=== PATIENT | male | born 1945 | race Caucasian/White ===

== ENCOUNTER 2020-03-25 18:31 | Inpatient (IN) | payer MEDICARE ==
[~2020-03-25] VITALS: Ht 190.5 cm; Wt 164.4 kg
[~2020-03-25 18:31] MED LIST: ASPI-482 PO; GEMF600T8 PO; HYDR12.575 PO; INSU100I17 SQ; LISI-334 PO; METF10007 PO; METO-269 PO; SIMV40TA18 PO
[2020-03-25 19:02] LABS: BASO % 0 % (0-3); EOS # 0.1 x10^3/uL (0.0-0.7); EOS % 1 % (0-3); HEMATOCRIT 35.3 % (39.0-53.0); HEMOGLOBIN 12.1 g/dL (13.0-17.5); LYMPH # 2.2 x10^3/uL (1.0-4.8); LYMPH % 25 % (24-48); MEAN CORPUSCULAR HEMOGLOBIN 31 pg (25-35); MEAN CORPUSCULAR HGB CONC 34 g/dL (31-37); MEAN CORPUSCULAR VOLUME 91 fL (79-100); MONO # 0.8 x10^3/uL (0.0-1.1); MONO % 9 % (0-9); NEUT % 66 % (31-73); PLATELET COUNT 273 x10^3/uL (140-400); RED BLOOD COUNT 3.87 x10^6/uL (4.30-5.70); RED CELL DISTRIBUTION WIDTH 13.5 % (11.5-14.5); WHITE BLOOD COUNT 9.1 x10^3/uL (4.0-11.0)
[2020-03-25 19:22] LABS: CALCIUM 8.4 mg/dL (8.5-10.1); CREATININE 2.5 mg/dL (0.7-1.3); GFR 25.4; POTASSIUM 3.9 mmol/L (3.5-5.1)
--- NOTE | 2020-03-25 19:22 | PHYS DOC ---
General Adult EDM: Chief Complaint: SHORTNESS OF BREATH HPI: HPI: Patient is a 74 year old male with a past medical history of diabetes hypertension hyperlipidemia presents for evaluation due to hypoxia. Patient tested positive for COVID obtain results today. Patient states on ran a fever greater than 100.4 but has been afebrile since. Patient states over the last 3 days he has had an oxygen saturation in the 80s. Shortness of breath is exacerbated with exertion. He denies shortness of breath while at rest. He states he has had an occasional cough with some sputum production. He denies any headache chest pain muscle aches abdominal pain nausea or vomiting. On arrival patient's oxygen saturation 82% on room air. During my examination patient's oxygen saturations 94% on 6 L nasal cannula. Review of Systems: Review of Systems: Review of systems: Constitutional symptoms-positive fever, no chills. Eyes- No Discharge, No Visual Loss Respiratory symptoms-positive shortness of breath positive dyspnea on exertion positive cough Cardiovascular Systems; No chest pain, No Palpitations, No syncope Gastrointestinal symptoms: NO abdominal pain, no nausea, no vomiting or diarrhea. Genitourinary symptoms: No dysuria. Musculoskeletal symptoms: No back pain No extremity pain. NEUROLOGICAL Symptoms: No headache, no generalized weakness; No focal Weakness Heart Score: Risk Factors: Risk Factors: DM, Current or recent (<one month) smoker, HTN, HLP, family history of CAD, obesity. Risk Scores: Score 0 - 3: 2.5% MACE over next 6 weeks - Discharge Home Score 4 - 6: 20.3% MACE over next 6 weeks - Admit for Clinical Observation Score 7 - 10: 72.7% MACE over next 6 weeks - Early Invasive Strategies Current Medications: Current Medications Medications (Trade) Dose Ordered Sig/[facility] Start Time Stop Time Status Last Admin Dose Admin Dexamethasone Sodium Phosphate (Decadron) 4 mg 1X ONCE 03/25/20 19:30 03/25/20 19:31 Allergies: Allergies: Allergies Coded Allergies Type Severity Reaction Last Updated Verified No Known Drug Allergies 01/31/14 No Physical Exam: PE: Constitutional: Well developed, well nourished, no acute distress, non-toxic appearance. [] HENT: Normocephalic, atraumatic, bilateral external ears normal, oropharynx moist, no oral exudates, nose normal. [] Eyes: PERRLA, EOMI, conjunctiva normal, no discharge. [] Neck: Normal range of motion, no tenderness, supple, no stridor. [] Cardiovascular:Heart rate regular rhythm, no murmur [] Lungs & Thorax: Bilateral breath sounds clear to auscultation [] Abdomen: Bowel sounds normal, soft, no tenderness, no masses, no pulsatile masses. [] Skin: Warm, dry, no erythema, no rash. [] Back: No tenderness, no CVA tenderness. [] Extremities: No tenderness, no cyanosis, no clubbing, ROM intact, no edema. [] Neurologic: Alert and oriented X 3, normal motor function, normal sensory function, no focal deficits noted. [] Psychologic: Affect normal, judgement normal, mood normal. [] Current Patient Data: Labs: Laboratory Tests Test 03/25/20 18:55 White Blood Count 9.1 x10^3/uL (4.0-11.0) Red Blood Count 3.87 x10^6/uL (4.30-5.70) L Hemoglobin 12.1 g/dL (13.0-17.5) L Hematocrit 35.3 % (39.0-53.0) L Mean Corpuscular Volume 91 fL (79-100) Mean Corpuscular Hemoglobin 31 pg (25-35) Mean Corpuscular Hemoglobin Concent 34 g/dL (31-37) Red Cell Distribution Width 13.5 % (11.5-14.5) Platelet Count 273 x10^3/uL (140-400) Neutrophils (%) (Auto) 66 % (31-73) Lymphocytes (%) (Auto) 25 % (24-48) Monocytes (%) (Auto) 9 % (0-9) Eosinophils (%) (Auto) 1 % (0-3) Basophils (%) (Auto) 0 % (0-3) Neutrophils # (Auto) 6.0 x10^3/uL (1.8-7.7) Lymphocytes # (Auto) 2.2 x10^3/uL (1.0-4.8) Monocytes # (Auto) 0.8 x10^3/uL (0.0-1.1) Eosinophils # (Auto) 0.1 x10^3/uL (0.0-0.7) Basophils # (Auto) 0.0 x10^3/uL (0.0-0.2) Laboratory Tests 03/25/20 18:55 EKG: EKG: [] EKG performed at 1848 heart rate 84 sinus rhythm left axis deviation no ST elevation no ST depression no acute UT. Radiology/Procedures: Radiology/Procedures: [] Impression: Chest x-ray consistent with COVID Course & Med Decision Making: Course & Med Decision Making Pertinent Labs and Imaging studies reviewed. (See chart for details) [] Patient was evaluated for chief complaint. Work-up consisted of laboratory analysis radiologic imaging and EKG. Results reviewed and discussed with patient. Patient found to have a creatinine of 2.4. Chest x-ray consistent with COVID. Treatment included IV fluids Decadron and supplemental oxygen via nasal cannula. Patient is on 6 L nasal cannula oxygen saturation 9394%. Patient admitted to the hospitalist Dr. Mariee with pulmonary consult. Dragon Disclaimer: Dragon Disclaimer: This electronic medical record was generated, in whole or in part, using a voice recognition dictation system. Departure Departure Impression: Primary Impression: Hypoxia Additional Impression: COVID-19 Disposition: ADMITTED INPATIENT Condition: STABLE Referrals: JULIA MARIEE MD (PCP) Justicifation of Admission Dx: Justifications for Admission: Justification of Admission Dx: Yes Respiratory Failure: Severe Resp Distress Comments: HYPOXIA, COVID 19 POSITIVE, ACUTE RENAL FAILURE DANIELLE NAVARRO I DO Mar 25, 2020 19:22
[2020-03-25 19:28] LABS: ALBUMIN 2.7 g/dL (3.4-5.0); ALBUMIN/GLOBULIN RATIO 0.5 (1.0-1.7); TOTAL BILIRUBIN 0.5 mg/dL (0.2-1.0); TOTAL PROTEIN 7.8 g/dL (6.4-8.2)
[2020-03-25] MEDS ORDERED: DEXAMETHASONE SOD PHOS 4 MG/ML VIAL IVP ONE (19:30)
--- NOTE | 2020-03-25 19:52 | RAD ---
EXAM: AP View of the chest DATE: 03/25/2020 6:38 PM INDICATION: Shortness of breath covid + COMPARISON: No Prior FINDINGS: Patient is rotated to the right limiting evaluation. Heart is moderately enlarged. Prominence of the mediastinum and iraj likely related to patient rotation. Bilateral parenchymal opacities, left greater than right consistent with provided history of Covid . Trace bilateral pleural effusions or pleural thickening. Elevation right hemidiaphragm. IMPRESSION: Bilateral parenchymal opacities consistent with provided history of Covid pneumonia. Electronically signed by: Javier Shen MD (03/25/2020 7:49 PM) TIM
[2020-03-25] MEDS ORDERED: IV NORMAL SALINE 1000ML BAG 1,000 ML IV ONE (20:00)
[2020-03-26] MEDS ORDERED: HYDR12.575 PO (02:06)
[2020-03-26] MEDS ORDERED: MULT1CAP15 PO (02:06)
[2020-03-26] MEDS ORDERED: CALC-31 PO (02:06)
[2020-03-26] MEDS ORDERED: GLIM2TAB7 PO (02:06)
[2020-03-26 03:00] VITALS: BP 150/63
--- NOTE | 2020-03-26 04:08 | EKG ---
[facility] [address] [place] [address] Test Date: 2020-03-25 Test Time: 18:48:21 Pat Name: TUAN BUCKLEY Department: Room: Gender: M Building Service Worker: : 1945 Requested By: DANIELLE NAVARRO Order Number: [id number] Reading MD: Measurements Intervals [place] Rate: 84 P: -36 ND: 168 QRS: -33 QRSD: 88 T: 56 QT: 352 QTc: 419 Interpretive Statements SINUS RHYTHM ABNORMAL LEFT AXIS DEVIATION QRS(T) CONTOUR ABNORMALITY CONSISTENT WITH INFERIOR INFARCT PROBABLY OLD ABNORMAL ECG RI6.02 No previous ECG available for comparison
[2020-03-26 07:00] VITALS: BP 128/59
[2020-03-26] MEDS ORDERED: metFORMIN 500 MG TABLET PO SCH (09:00)
[2020-03-26] MEDS ORDERED: DEXTROSE 50% 25 GM / 50ML DISP.SYRIN. IV PRN (09:00)
[2020-03-26] MEDS ORDERED: hydroCHLOROthiazide 12.5 MG CAPSULE PO SCH ×2 (09:00)
--- NOTE | 2020-03-26 09:03 | PDOC ---
Provider Note Date of Service: DATE: 03/26/20 TIME: 09:00 Provider Note [id number] Justifications for Admission Other Justification JULIA GAMBLE MD Mar 26, 2020 09:03
--- NOTE | 2020-03-26 09:22 | HP ---
ADMIT DATE: 03/25/2020 CHIEF COMPLAINT: COVID. HISTORY OF PRESENT ILLNESS: A 74-year-old white male with morbid obesity, poorly controlled type 2 diabetes and insulin resistance, has been ill for about a week and tested positive for COVID on the day of admission. His son was probably the vector and had been with him. He was feeling well after several days, but it was never tested. Both the patient and his have COVID positive test done at [facility]. He had increasing shortness of breath, so he came to the ER and chest x-ray was consistent with COVID pneumonia. He was given his first dose of Decadron and feeling somewhat better with oxygen at this time. MEDICATIONS: Listed per the chart. ALLERGIES: No allergies known. IMMUNIZATION STATUS: Up-to-date. Last A1c was 9.2. SOCIAL HISTORY: Never smoker, retired, , nondrinker. FAMILY HISTORY: Unremarkable. REVIEW OF SYSTEMS: No other problems. OBJECTIVE: ENT: All within normal limits. NECK: No masses, nodes, or bruits. LUNGS: Coarse inspiratory and expiratory rhonchi, no tachypnea. CARDIOVASCULAR: Regular rate. Heart tones distant. ABDOMEN: Obese, soft, benign, and nontender. EXTREMITIES: Good pedal and radial pulses. No joint or skin lesions. NEUROLOGIC: Physiologic. ASSESSMENT: 1. COVID pneumonia. 2. Poorly controlled type 2 diabetes mellitus. 3. Acute renal failure superimposed on chronic kidney disease 2, which is normal status. 4. Hypertension. PLAN: Continue p.o. Decadron. We will resume insulin. Hold metformin and hydrochlorothiazide. Continue IV fluids to rehydrate for kidney benefit. Pulmonary consultation pending. JULIA GAMBLE MD DR: ABHISHEK/katty JOB#: [id number] / [id number]
[2020-03-26] MEDS ORDERED: INSULIN GLARGINE SYRINGE. SQ SCH (10:00)
[2020-03-26] MEDS: ASPIRIN ENTERIC COATED 81 MG TABLET.DR. PO SCH (10:37)
[2020-03-26] MEDS: LISINOPRIL 20 MG TABLET PO SCH (10:38)
[2020-03-26] MEDS: GLIMEPIRIDE 2 MG TABLET. PO SCH (10:38)
[2020-03-26] MEDS: METOPROLOL SUCC 24HR ER 50 MG TAB.ER.24H. PO SCH ×2 (10:38→21:32)
[2020-03-26] MEDS: DEXAMETHASONE 4 MG TABLET PO SCH (10:38)
[2020-03-26 11:00] VITALS: BP 129/61
[2020-03-26] MEDS ORDERED: ENOXAPARIN 40 MG/0.4 ML SYRINGE. SQ SCH (12:15)
--- NOTE | 2020-03-26 12:17 | PDOC ---
PULMONARY PROGRESS NOTES DATE: 03/26/20 TIME: 12:16 Vitals Vital Signs Date Time Temp Pulse Resp B/P (MAP) Pulse Ox O2 Delivery O2 Flow Rate FiO2 03/26/20 10:38 87 128/59 03/26/20 07:00 97.9 24 94 Nasal Cannula 5.0 97.9 Labs Laboratory Tests Test 03/25/20 18:55 03/25/20 22:22 03/26/20 07:26 03/26/20 11:46 White Blood Count 9.1 x10^3/uL (4.0-11.0) Red Blood Count 3.87 x10^6/uL (4.30-5.70) Hemoglobin 12.1 g/dL (13.0-17.5) Hematocrit 35.3 % (39.0-53.0) Mean Corpuscular Volume 91 fL (79-100) Mean Corpuscular Hemoglobin 31 pg (25-35) Mean Corpuscular Hemoglobin Concent 34 g/dL (31-37) Red Cell Distribution Width 13.5 % (11.5-14.5) Platelet Count 273 x10^3/uL (140-400) Neutrophils (%) (Auto) 66 % (31-73) Lymphocytes (%) (Auto) 25 % (24-48) Monocytes (%) (Auto) 9 % (0-9) Eosinophils (%) (Auto) 1 % (0-3) Basophils (%) (Auto) 0 % (0-3) Neutrophils # (Auto) 6.0 x10^3/uL (1.8-7.7) Lymphocytes # (Auto) 2.2 x10^3/uL (1.0-4.8) Monocytes # (Auto) 0.8 x10^3/uL (0.0-1.1) Eosinophils # (Auto) 0.1 x10^3/uL (0.0-0.7) Basophils # (Auto) 0.0 x10^3/uL (0.0-0.2) Sodium Level 136 mmol/L (136-145) Potassium Level 3.9 mmol/L (3.5-5.1) Chloride Level 100 mmol/L (98-107) Carbon Dioxide Level 23 mmol/L (21-32) Anion Gap 13 (6-14) Blood Urea Nitrogen 45 mg/dL (8-26) Creatinine 2.5 mg/dL (0.7-1.3) Estimated GFR (Cockcroft-Gault) 25.4 BUN/Creatinine Ratio 18 (6-20) Glucose Level 164 mg/dL (70-99) Lactic Acid Level 2.3 mmol/L (0.4-2.0) 1.4 mmol/L (0.4-2.0) Calcium Level 8.4 mg/dL (8.5-10.1) Total Bilirubin 0.5 mg/dL (0.2-1.0) Aspartate Amino Transf (AST/SGOT) 38 U/L (15-37) Alanine Aminotransferase (ALT/SGPT) 26 U/L (16-63) Alkaline Phosphatase 97 U/L (46-116) Troponin I Quantitative < 0.017 ng/mL (0.000-0.055) SF-Bzf-U-Type Natriuretic Peptide 178 pg/mL (0-124) Total Protein 7.8 g/dL (6.4-8.2) Albumin 2.7 g/dL (3.4-5.0) Albumin/Globulin Ratio 0.5 (1.0-1.7) Glucose (Fingerstick) 205 mg/dL (70-99) 228 mg/dL (70-99) Laboratory Tests Test 03/25/20 18:55 03/25/20 22:22 03/26/20 07:26 03/26/20 11:46 White Blood Count 9.1 x10^3/uL (4.0-11.0) Red Blood Count 3.87 x10^6/uL (4.30-5.70) Hemoglobin 12.1 g/dL (13.0-17.5) Hematocrit 35.3 % (39.0-53.0) Mean Corpuscular Volume 91 fL (79-100) Mean Corpuscular Hemoglobin 31 pg (25-35) Mean Corpuscular Hemoglobin Concent 34 g/dL (31-37) Red Cell Distribution Width 13.5 % (11.5-14.5) Platelet Count 273 x10^3/uL (140-400) Neutrophils (%) (Auto) 66 % (31-73) Lymphocytes (%) (Auto) 25 % (24-48) Monocytes (%) (Auto) 9 % (0-9) Eosinophils (%) (Auto) 1 % (0-3) Basophils (%) (Auto) 0 % (0-3) Neutrophils # (Auto) 6.0 x10^3/uL (1.8-7.7) Lymphocytes # (Auto) 2.2 x10^3/uL (1.0-4.8) Monocytes # (Auto) 0.8 x10^3/uL (0.0-1.1) Eosinophils # (Auto) 0.1 x10^3/uL (0.0-0.7) Basophils # (Auto) 0.0 x10^3/uL (0.0-0.2) Sodium Level 136 mmol/L (136-145) Potassium Level 3.9 mmol/L (3.5-5.1) Chloride Level 100 mmol/L (98-107) Carbon Dioxide Level 23 mmol/L (21-32) Anion Gap 13 (6-14) Blood Urea Nitrogen 45 mg/dL (8-26) Creatinine 2.5 mg/dL (0.7-1.3) Estimated GFR (Cockcroft-Gault) 25.4 BUN/Creatinine Ratio 18 (6-20) Glucose Level 164 mg/dL (70-99) Lactic Acid Level 2.3 mmol/L (0.4-2.0) 1.4 mmol/L (0.4-2.0) Calcium Level 8.4 mg/dL (8.5-10.1) Total Bilirubin 0.5 mg/dL (0.2-1.0) Aspartate Amino Transf (AST/SGOT) 38 U/L (15-37) Alanine Aminotransferase (ALT/SGPT) 26 U/L (16-63) Alkaline Phosphatase 97 U/L (46-116) Troponin I Quantitative < 0.017 ng/mL (0.000-0.055) LK-Iko-Y-Type Natriuretic Peptide 178 pg/mL (0-124) Total Protein 7.8 g/dL (6.4-8.2) Albumin 2.7 g/dL (3.4-5.0) Albumin/Globulin Ratio 0.5 (1.0-1.7) Glucose (Fingerstick) 205 mg/dL (70-99) 228 mg/dL (70-99) Medications Active Scripts Medications Dose Route/Sig Max Daily Dose Days Date Category Hydrochlorothiazide Capsule (Hydrochlorothiazide) 12.5 Mg Capsule 12.5 Mg PO DAILY 03/26/20 Reported Calcium 500 + D Tablet (Calcium Carbonate/Vitamin D3) 1 Each Tablet 1 Tab PO DAILY 30 03/26/20 Reported Multivitamins (Multivitamin) 1 Each Capsule 1 Cap PO DAILY 30 03/26/20 Reported Glimepiride 2 Mg Tablet 1 Tab PO DAILY 03/26/20 Reported Gemfibrozil 600 Mg Tablet 600 Mg PO BID 01/31/14 Reported Simvastatin 40 Mg Tablet 40 Mg PO DAILY 01/31/14 Reported Hydrochlorothiazide Capsule (Hydrochlorothiazide) 12.5 Mg Capsule 12.5 Mg PO DAILY 01/31/14 Reported Toprol Xl (Metoprolol Succinate) 50 Mg Tab.er.24h 50 Mg PO BID 01/31/14 Reported Lisinopril 20 Mg Tablet 20 Mg PO DAILY 01/31/14 Reported Metformin Hcl 1,000 Mg Tablet 1,000 Mg PO BIDWMEALS 01/31/14 Reported Aspir 81 (Aspirin) 81 Mg Tablet.dr 81 Mg PO DAILY 01/31/14 Reported Novolog Flexpen (Insulin Aspart) 100 Unit/1 Ml Insuln.pen 100 Unit SQ 01/31/14 Reported Impression . FULL CONSULT DICTATED SEE ORDERS AGREE WITH CURRENT RX THANKS FOR ALLOWING ME TO PARTICIPATE IN CARE OF YOUR PATIENT ALLYSSA HAMILTON MD Mar 26, 2020 12:17
[2020-03-26] MEDS: IV NORMAL SALINE 1000ML BAG 1,000 ML IV SCH ×2 (12:37→19:00)
--- NOTE | 2020-03-26 12:43 | CONS ---
DATE OF CONSULTATION: 03/26/2020 ATTENDING PHYSICIAN: Keyshawn Mariee MD REASON FOR CONSULTATION: The patient is seen in pulmonary consultation at the request of Dr. Mariee for acute hypoxemic respiratory failure related to COVID-19. HISTORY OF PRESENT ILLNESS: The patient is a 74-year-old that was exposed to his son who works through the local law enforcement. Son tested positive after being symptomatic. Both the patient and his tested positive approximately a week ago last Tuesday. They went to [facility] and tested positive. The results came back on Tuesday. The patient was doing well at home up until the last 24-48 hours where he has had increasingly short of breath, temperature of 101. His saturation he was monitoring at home, normally run in around 95, dropped to 88. He was very short of breath with minimal exertion, associated with some diarrhea. No nausea or vomiting. He has a cough productive of some discolored sputum. He presented with the above complaints. He was admitted. He is currently requiring oxygen supplementation at 5 liters. At one point, he was up to 6 liters. He had a chest x-ray revealing some bilateral patchy opacities compatible with COVID-19. Since his admission, the patient feels better. His diarrhea has slowed down. He denies hemoptysis. PAST MEDICAL HISTORY: Remarkable for type 2 diabetes, hypertension, morbid obesity. No history of coronary artery disease. No history of DVT or pulmonary embolism. PAST SURGICAL HISTORY: Status post cholecystectomy. SOCIAL HISTORY: He smoked for approximately 20 years ago, quit many years ago. 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 FAMILY HISTORY: Noncontributory in this case. REVIEW OF SYSTEMS: CONSTITUTIONAL: Fever as indicated above. EYES: No change in visual acuity. HENT: No nasal congestion or sore throat. PULMONARY: As indicated above. CARDIOVASCULAR: As indicated above. No prior history of coronary artery disease or previous myocardial infarction. GASTROINTESTINAL: As indicated above. GENITOURINARY: No dysuria or frequency. MUSCULOSKELETAL: No localized muscle aches or joint pains. SKIN: No new skin rashes. NEUROLOGIC: No headaches, diplopia or blurred vision. PHYSICAL EXAMINATION: GENERAL: The patient was on 5 liters of oxygen supplementation since admission. VITAL SIGNS: He has been afebrile. HEENT: Eyes, the sclerae were nonicteric. NECK: Jugular venous distention could not be assessed secondary to body habitus. CHEST: Full expansion. LUNGS: Adequate flow with no wheezes. CARDIOVASCULAR: Regular rate and rhythm with S1, S2, no S3. ABDOMEN: Obese. EXTREMITIES: No clubbing, cyanosis or pitting edema. NEUROLOGICAL: The patient was awake, alert, following commands. A detailed neuro exam was not performed. LABORATORY DATA: Reviewed. White count was normal. Electrolytes were noted. Blood sugar was elevated. BUN was elevated, creatinine was elevated at 2.5. Albumin was 2.7. RADIOLOGICAL DATA: Chest x-ray as indicated above. IMPRESSION: 1. Acute hypoxemic respiratory failure, multifactorial secondary to COVID-19 and morbid obesity along with possible chronic obstructive pulmonary disease. 2. Abnormal x-ray revealing bilateral pulmonary infiltrates compatible with COVID-19. 3. SARS-CoV-2 positivity a week ago. 4. Morbid obesity. 5. Type 2 diabetes. 6. Hypertension. 7. Fever related to SARS-CoV-2. PLAN: 1. We will continue current support with oxygen supplementation. Monitor for further deterioration, the patient meeting inpatient status secondary to severe hypoxemia and clinical deterioration in the last 24-48 hours. 2. Continue Decadron. 3. We will hold off on antibiotics at this time, he is 1 week out. 4. Hold off on convalescent serum, so far the clinical data is not very strong that helpful, we will consider convalescent serum if the patient's clinical status deteriorates. 5. Continue home meds. 6. DVT prophylaxis. Dr. Mariee, I do appreciate the privilege in sharing in the patient's care. ALLYSSA HAMILTON MD DR: CHLOE/katty JOB#: [id number] / [id number]
[2020-03-26 14:48] VITALS: BP 130/65
--- NOTE | 2020-03-26 16:52 | NUR ---
SW following. Spoke with RN and reviewed chart. Pt from home. Pt currently on an ADA diet and 5l 02. Pt COVID positive. Pt was observation but will be admitted in-patient. Pt on IV Dextrose. SW following.
[2020-03-26 19:00] VITALS: BP 130/66
[2020-03-26] MEDS: SIMVASTATIN 40 MG TABLET. PO SCH (21:32)
[2020-03-26] MEDS: ENOXAPARIN 40 MG/0.4 ML SYRINGE. SQ SCH (21:32)
[2020-03-26 22:49] VITALS: BP 124/66
[2020-03-27 03:00] VITALS: BP 143/66
[2020-03-27] MEDS: IV NORMAL SALINE 1000ML BAG 1,000 ML IV SCH ×2 (06:18→20:19)
[2020-03-27 07:30] VITALS: BP 113/61
--- NOTE | 2020-03-27 08:19 | PDOC ---
PULMONARY PROGRESS NOTES DATE: 03/27/20 TIME: 08:18 Subjective Patient feels better cough slightly productive no chest pain no pressure Vitals Vital Signs Date Time Temp Pulse Resp B/P (MAP) Pulse Ox O2 Delivery O2 Flow Rate FiO2 03/27/20 03:00 97.7 80 17 143/66 (91) 94 Nasal Cannula 5.0 97.7 ROS: No Chest Pain, No Abdominal Pain, No Increase Cough Lungs: Crackles Cardiovascular: S1, S2 Abdomen: Other (Obese) Neuro Exam: Alert Extremities: No Edema Skin: Warm Labs Laboratory Tests Test 03/25/20 18:55 03/25/20 22:22 03/26/20 07:26 03/26/20 11:46 White Blood Count 9.1 x10^3/uL (4.0-11.0) Red Blood Count 3.87 x10^6/uL (4.30-5.70) Hemoglobin 12.1 g/dL (13.0-17.5) Hematocrit 35.3 % (39.0-53.0) Mean Corpuscular Volume 91 fL (79-100) Mean Corpuscular Hemoglobin 31 pg (25-35) Mean Corpuscular Hemoglobin Concent 34 g/dL (31-37) Red Cell Distribution Width 13.5 % (11.5-14.5) Platelet Count 273 x10^3/uL (140-400) Neutrophils (%) (Auto) 66 % (31-73) Lymphocytes (%) (Auto) 25 % (24-48) Monocytes (%) (Auto) 9 % (0-9) Eosinophils (%) (Auto) 1 % (0-3) Basophils (%) (Auto) 0 % (0-3) Neutrophils # (Auto) 6.0 x10^3/uL (1.8-7.7) Lymphocytes # (Auto) 2.2 x10^3/uL (1.0-4.8) Monocytes # (Auto) 0.8 x10^3/uL (0.0-1.1) Eosinophils # (Auto) 0.1 x10^3/uL (0.0-0.7) Basophils # (Auto) 0.0 x10^3/uL (0.0-0.2) Sodium Level 136 mmol/L (136-145) Potassium Level 3.9 mmol/L (3.5-5.1) Chloride Level 100 mmol/L (98-107) Carbon Dioxide Level 23 mmol/L (21-32) Anion Gap 13 (6-14) Blood Urea Nitrogen 45 mg/dL (8-26) Creatinine 2.5 mg/dL (0.7-1.3) Estimated GFR (Cockcroft-Gault) 25.4 BUN/Creatinine Ratio 18 (6-20) Glucose Level 164 mg/dL (70-99) Lactic Acid Level 2.3 mmol/L (0.4-2.0) 1.4 mmol/L (0.4-2.0) Calcium Level 8.4 mg/dL (8.5-10.1) Total Bilirubin 0.5 mg/dL (0.2-1.0) Aspartate Amino Transf (AST/SGOT) 38 U/L (15-37) Alanine Aminotransferase (ALT/SGPT) 26 U/L (16-63) Alkaline Phosphatase 97 U/L (46-116) Troponin I Quantitative < 0.017 ng/mL (0.000-0.055) ZQ-Nhe-M-Type Natriuretic Peptide 178 pg/mL (0-124) Total Protein 7.8 g/dL (6.4-8.2) Albumin 2.7 g/dL (3.4-5.0) Albumin/Globulin Ratio 0.5 (1.0-1.7) Glucose (Fingerstick) 205 mg/dL (70-99) 228 mg/dL (70-99) Test 03/26/20 16:29 03/26/20 20:29 03/27/20 08:16 Glucose (Fingerstick) 261 mg/dL (70-99) 290 mg/dL (70-99) 196 mg/dL (70-99) Laboratory Tests Test 03/26/20 11:46 03/26/20 16:29 03/26/20 20:29 03/27/20 08:16 Glucose (Fingerstick) 228 mg/dL (70-99) 261 mg/dL (70-99) 290 mg/dL (70-99) 196 mg/dL (70-99) Medications Active Scripts Medications Dose Route/Sig Max Daily Dose Days Date Category Hydrochlorothiazide Capsule (Hydrochlorothiazide) 12.5 Mg Capsule 12.5 Mg PO DAILY 03/26/20 Reported Calcium 500 + D Tablet (Calcium Carbonate/Vitamin D3) 1 Each Tablet 1 Tab PO DAILY 30 03/26/20 Reported Multivitamins (Multivitamin) 1 Each Capsule 1 Cap PO DAILY 30 03/26/20 Reported Glimepiride 2 Mg Tablet 1 Tab PO DAILY 03/26/20 Reported Gemfibrozil 600 Mg Tablet 600 Mg PO BID 01/31/14 Reported Simvastatin 40 Mg Tablet 40 Mg PO DAILY 01/31/14 Reported Hydrochlorothiazide Capsule (Hydrochlorothiazide) 12.5 Mg Capsule 12.5 Mg PO DAILY 01/31/14 Reported Toprol Xl (Metoprolol Succinate) 50 Mg Tab.er.24h 50 Mg PO BID 01/31/14 Reported Lisinopril 20 Mg Tablet 20 Mg PO DAILY 01/31/14 Reported Metformin Hcl 1,000 Mg Tablet 1,000 Mg PO BIDWMEALS 01/31/14 Reported Aspir 81 (Aspirin) 81 Mg Tablet.dr 81 Mg PO DAILY 01/31/14 Reported Novolog Flexpen (Insulin Aspart) 100 Unit/1 Ml Insuln.pen 100 Unit SQ 01/31/14 Reported Impression . IMPRESSION: 1. Acute hypoxemic respiratory failure, multifactorial secondary to COVID-19 and morbid obesity along with possible chronic obstructive pulmonary disease. 2. Abnormal x-ray revealing bilateral pulmonary infiltrates compatible with COVID-19. 3. SARS-CoV-2 positivity a week ago. 4. Morbid obesity. 5. Type 2 diabetes. 6. Hypertension. 7. Fever related to SARS-CoV-2. Plan . Patient improving Continue oxygen support 6-minute walk in the a.m. Possible discharge next 24 to 48-hour Will need a total of 10-day course of steroid ALLYSSA HAMILTON MD Mar 27, 2020 08:18
--- NOTE | 2020-03-27 08:29 | PDOC ---
Provider Note Date of Service: DATE: 03/27/20 TIME: 08:28 Provider Note less dyspnea and cough, feels better- good output, renal lab pending re arf- will inc insulin re decadron, less iv rate , follow lab, wean O2 as tolerated Justifications for Admission Other Justification JULIA GAMBLE MD Mar 27, 2020 08:29
[2020-03-27 09:34] LABS: CALCIUM 8.3 mg/dL (8.5-10.1); CREATININE 1.8 mg/dL (0.7-1.3); GFR 37.2; POTASSIUM 4.2 mmol/L (3.5-5.1)
[2020-03-27] MEDS: DEXAMETHASONE 4 MG TABLET PO SCH (10:00)
[2020-03-27] MEDS: LISINOPRIL 20 MG TABLET PO SCH (10:00)
[2020-03-27] MEDS: ASPIRIN ENTERIC COATED 81 MG TABLET.DR. PO SCH (10:01)
[2020-03-27] MEDS: METOPROLOL SUCC 24HR ER 50 MG TAB.ER.24H. PO SCH ×2 (10:01→20:19)
[2020-03-27] MEDS: GLIMEPIRIDE 2 MG TABLET. PO SCH (10:01)
[2020-03-27] MEDS: ENOXAPARIN 40 MG/0.4 ML SYRINGE. SQ SCH ×2 (10:02→20:20)
[2020-03-27] MEDS: INSULIN GLARGINE SYRINGE. SQ SCH ×2 (10:04→20:19)
[2020-03-27 11:39] VITALS: BP 141/60
[2020-03-27 15:00] VITALS: BP 158/77
--- NOTE | 2020-03-27 17:19 | NUR ---
SW following. Spoke with RN and reviewed chart. Pt remains on an ADA diet and 5l 02. 6 min walk has been ordered. Pt remains on IV Dextrose. Pt does plan to return home on discharge. SW following for possible 02 setup needs at discharge.
[2020-03-27 20:06] VITALS: BP 159/73
[2020-03-27] MEDS: SIMVASTATIN 40 MG TABLET. PO SCH (20:19)
[2020-03-27] MEDS: LOPERAMIDE 2 MG CAPSULE PO PRN (21:01)
[2020-03-27 23:27] VITALS: BP_SYST 142
[2020-03-28 03:55] VITALS: BP 145/80
[2020-03-28 05:21] LABS: CALCIUM 8.2 mg/dL (8.5-10.1); CREATININE 1.7 mg/dL (0.7-1.3); GFR 39.7
[2020-03-28 07:57] VITALS: BP 114/54
--- NOTE | 2020-03-28 08:06 | PDOC ---
Provider Note Date of Service: DATE: 03/28/20 TIME: 08:05 Provider Note feels same, less dyspnea, not much cough , some diarrhea- gfr better from 25 to 38 , so dc iv saline and follow- more lantus re decadron, rest same Justifications for Admission Other Justification JULIA GAMBLE MD Mar 28, 2020 08:06
--- NOTE | 2020-03-28 08:35 | PDOC ---
PULMONARY PROGRESS NOTES DATE: 03/28/20 TIME: 08:35 Subjective Patient feels better, wishes to go home no increasing shortness of breath no chest pain no pressure Vitals Vital Signs Date Time Temp Pulse Resp B/P (MAP) Pulse Ox O2 Delivery O2 Flow Rate FiO2 03/28/20 07:57 98.3 54 19 114/54 (74) 95 Nasal Cannula 5.0 98.3 ROS: No Nausea, No Chest Pain, No Abdominal Pain, No Increase Cough Lungs: Crackles Cardiovascular: S1, S2 Abdomen: Other (Obese) Neuro Exam: Alert Extremities: No Edema Skin: Warm Labs Laboratory Tests Test 03/26/20 11:46 03/26/20 16:29 03/26/20 20:29 03/27/20 08:16 Glucose (Fingerstick) 228 mg/dL (70-99) 261 mg/dL (70-99) 290 mg/dL (70-99) 196 mg/dL (70-99) Test 03/27/20 09:05 03/27/20 12:25 03/27/20 17:41 03/27/20 20:28 Sodium Level 139 mmol/L (136-145) Potassium Level 4.2 mmol/L (3.5-5.1) Chloride Level 103 mmol/L (98-107) Carbon Dioxide Level 26 mmol/L (21-32) Anion Gap 10 (6-14) Blood Urea Nitrogen 44 mg/dL (8-26) Creatinine 1.8 mg/dL (0.7-1.3) Estimated GFR (Cockcroft-Gault) 37.2 Glucose Level 189 mg/dL (70-99) Calcium Level 8.3 mg/dL (8.5-10.1) Glucose (Fingerstick) 183 mg/dL (70-99) 233 mg/dL (70-99) 269 mg/dL (70-99) Test 03/28/20 04:00 03/28/20 08:12 Sodium Level 139 mmol/L (136-145) Potassium Level 4.0 mmol/L (3.5-5.1) Chloride Level 105 mmol/L (98-107) Carbon Dioxide Level 27 mmol/L (21-32) Anion Gap 7 (6-14) Blood Urea Nitrogen 42 mg/dL (8-26) Creatinine 1.7 mg/dL (0.7-1.3) Estimated GFR (Cockcroft-Gault) 39.7 Glucose Level 125 mg/dL (70-99) Calcium Level 8.2 mg/dL (8.5-10.1) Glucose (Fingerstick) 88 mg/dL (70-99) Laboratory Tests Test 03/27/20 09:05 03/27/20 12:25 03/27/20 17:41 03/27/20 20:28 Sodium Level 139 mmol/L (136-145) Potassium Level 4.2 mmol/L (3.5-5.1) Chloride Level 103 mmol/L (98-107) Carbon Dioxide Level 26 mmol/L (21-32) Anion Gap 10 (6-14) Blood Urea Nitrogen 44 mg/dL (8-26) Creatinine 1.8 mg/dL (0.7-1.3) Estimated GFR (Cockcroft-Gault) 37.2 Glucose Level 189 mg/dL (70-99) Calcium Level 8.3 mg/dL (8.5-10.1) Glucose (Fingerstick) 183 mg/dL (70-99) 233 mg/dL (70-99) 269 mg/dL (70-99) Test 03/28/20 04:00 03/28/20 08:12 Sodium Level 139 mmol/L (136-145) Potassium Level 4.0 mmol/L (3.5-5.1) Chloride Level 105 mmol/L (98-107) Carbon Dioxide Level 27 mmol/L (21-32) Anion Gap 7 (6-14) Blood Urea Nitrogen 42 mg/dL (8-26) Creatinine 1.7 mg/dL (0.7-1.3) Estimated GFR (Cockcroft-Gault) 39.7 Glucose Level 125 mg/dL (70-99) Calcium Level 8.2 mg/dL (8.5-10.1) Glucose (Fingerstick) 88 mg/dL (70-99) Medications Active Scripts Medications Dose Route/Sig Max Daily Dose Days Date Category Hydrochlorothiazide Capsule (Hydrochlorothiazide) 12.5 Mg Capsule 12.5 Mg PO DAILY 03/26/20 Reported Calcium 500 + D Tablet (Calcium Carbonate/Vitamin D3) 1 Each Tablet 1 Tab PO DAILY 03/26/20 Reported Multivitamins (Multivitamin) 1 Each Capsule 1 Cap PO DAILY 20 Reported Glimepiride 2 Mg Tablet 1 Tab PO DAILY 03/26/20 Reported Gemfibrozil 600 Mg Tablet 600 Mg PO BID 01/31/14 Reported Simvastatin 40 Mg Tablet 40 Mg PO DAILY 01/31/14 Reported Hydrochlorothiazide Capsule (Hydrochlorothiazide) 12.5 Mg Capsule 12.5 Mg PO DAILY 01/31/14 Reported Toprol Xl (Metoprolol Succinate) 50 Mg Tab.er.24h 50 Mg PO BID 01/31/14 Reported Lisinopril 20 Mg Tablet 20 Mg PO DAILY 01/31/14 Reported Metformin Hcl 1,000 Mg Tablet 1,000 Mg PO BIDWMEALS 01/31/14 Reported Aspir 81 (Aspirin) 81 Mg Tablet.dr 81 Mg PO DAILY 01/31/14 Reported Novolog Flexpen (Insulin Aspart) 100 Unit/1 Ml Insuln.pen 100 Unit SQ 01/31/14 Reported Impression . IMPRESSION: 1. Acute hypoxemic respiratory failure, multifactorial secondary to COVID-19 and morbid obesity along with possible chronic obstructive pulmonary disease. 2. Abnormal x-ray revealing bilateral pulmonary infiltrates compatible with COVID-19. 3. SARS-CoV-2 positivity a week ago. 4. Morbid obesity. 5. Type 2 diabetes. 6. Hypertension. 7. Fever related to SARS-CoV-2. 8. Chronic hypoxemic respiratory failure Plan . Needs oxygen supplementation at home Rx written Follow-up with me on Tuesday at 3 PM for results of the biopsy Patient instructed to call me or visit the nearest emergency room with increasing mopped assist Rx for steroids prednisone additional 7 days written ALLYSSA HAMILTON MD Mar 28, 2020 08:35
[2020-03-28] MEDS: INSULIN GLARGINE SYRINGE. SQ SCH ×2 (10:26→19:42)
[2020-03-28] MEDS: ENOXAPARIN 40 MG/0.4 ML SYRINGE. SQ SCH ×2 (10:27→20:35)
[2020-03-28] MEDS: LISINOPRIL 20 MG TABLET PO SCH (10:27)
[2020-03-28] MEDS: ASPIRIN ENTERIC COATED 81 MG TABLET.DR. PO SCH (10:27)
[2020-03-28] MEDS: GLIMEPIRIDE 2 MG TABLET. PO SCH (10:28)
[2020-03-28] MEDS: DEXAMETHASONE 4 MG TABLET PO SCH (10:28)
[2020-03-28] MEDS: METOPROLOL SUCC 24HR ER 50 MG TAB.ER.24H. PO SCH ×2 (10:28→20:35)
[2020-03-28] MEDS: LOPERAMIDE 2 MG CAPSULE PO PRN ×2 (10:34→20:35)
--- NOTE | 2020-03-28 10:42 | NUR ---
GERA following. Spoke with RN and reviewed chart. 6 min walk results are back an pt needs 6l continuous 02 at discharge. GERA phoned and faxed clinicals to Yasmani at [facility]. GERA called and requested a script from Dr. Mariee. Pt will likely discharge home over the weekend per Dr. Mariee. GERA requested RN obtain 02 script from pulmonary today per request of Dr. Mariee. Patient Choice of vendor form completed. LVM for and attempted to call into pt's room (no answer). Pt added to weekend discharge list. GERA following. Addendum: 03/28/20 at 1057 by NOELLE BOSS called back ([phone]) and SW provided contact information for [facility]. Pt's aware of 02 needs at discharge. Addendum: 03/28/20 at 1724 by NOELLE BOSS 02 script obtained and faxed to [facility]. Spoke with Sandee and 02 approved. Tank in pt's room. No further SW needs.
[2020-03-28 11:35] VITALS: BP 129/67
[2020-03-28 15:33] VITALS: BP 163/92
--- NOTE | 2020-03-28 19:03 | DS ---
DATE OF DISCHARGE: 03/28/2020 HOSPITAL SUMMARY: The patient was admitted with known COVID-19 diagnosis and increasing dyspnea. His chemistry profile and CBC were unremarkable except the creatinine up to 2.4, which came down to 1.7 with hydration. He was given oxygen, supportive care, IV fluids, and oral Decadron and subjectively felt better gradually over the hospital stay. He still shows a need for home oxygen as qualified per a 6-minute walk under the supervision of Dr. Caldera and is comfortable to be followed as an outpatient. FINAL DIAGNOSES: 1. COVID-19 pneumonia with secondary hypoxia. 2. Acute renal failure secondary to dehydration from COVID-19. OPERATIONS, PROCEDURES, COMPLICATIONS: None. CONSULTATIONS: Dr. Caldera. DISPOSITION: Home meds remain all the same with 3 more days of Decadron 6 mg daily. Home oxygen as prescribed by Dr. Caldera until no longer needed and office followup as scheduled. His is already recovering from COVID and will not be at risk. PROGNOSIS: Guarded. JULIA GAMBLE MD DR: ABHISHEK/katty JOB#: [id number] / [id number]
[2020-03-28 19:48] VITALS: BP 144/78
[2020-03-28] MEDS: SIMVASTATIN 40 MG TABLET. PO SCH (20:35)
[2020-03-29 03:44] VITALS: BP 117/61
[2020-03-29 04:24] LABS: CALCIUM 8.1 mg/dL (8.5-10.1); CREATININE 1.4 mg/dL (0.7-1.3); GFR 49.7; POTASSIUM 3.9 mmol/L (3.5-5.1)
--- NOTE | 2020-03-29 05:35 | NUR ---
Pts fsbs 59. Pt asymptomatic. 2 apple juices given. Pts fsbs now 72. Pt requesting to wait until later to decide if he wants lantus to be given. Will continue to monitor.
[2020-03-29] MEDS: INSULIN GLARGINE SYRINGE. SQ SCH (06:00)
[2020-03-29 07:00] VITALS: BP 133/56
--- NOTE | 2020-03-29 07:54 | PDOC ---
PULMONARY PROGRESS NOTES DATE: 03/29/20 TIME: 07:53 Subjective Patient feels better, sob better, has occ cough Vitals Vital Signs Date Time Temp Pulse Resp B/P (MAP) Pulse Ox O2 Delivery O2 Flow Rate FiO2 03/29/20 03:44 97.6 49 20 117/61 (79) 99 Nasal Cannula 5.0 97.6 ROS: No Nausea, No Chest Pain, No Abdominal Pain, No Increase Cough Lungs: Crackles Cardiovascular: S1, S2 Abdomen: Other (Obese) Neuro Exam: Alert Extremities: No Edema Skin: Warm Labs Laboratory Tests Test 03/27/20 08:16 03/27/20 09:05 03/27/20 12:25 03/27/20 17:41 Glucose (Fingerstick) 196 mg/dL (70-99) 183 mg/dL (70-99) 233 mg/dL (70-99) Sodium Level 139 mmol/L (136-145) Potassium Level 4.2 mmol/L (3.5-5.1) Chloride Level 103 mmol/L (98-107) Carbon Dioxide Level 26 mmol/L (21-32) Anion Gap 10 (6-14) Blood Urea Nitrogen 44 mg/dL (8-26) Creatinine 1.8 mg/dL (0.7-1.3) Estimated GFR (Cockcroft-Gault) 37.2 Glucose Level 189 mg/dL (70-99) Calcium Level 8.3 mg/dL (8.5-10.1) Test 03/27/20 20:28 03/28/20 04:00 03/28/20 08:12 03/28/20 17:10 Glucose (Fingerstick) 269 mg/dL (70-99) 88 mg/dL (70-99) 196 mg/dL (70-99) Sodium Level 139 mmol/L (136-145) Potassium Level 4.0 mmol/L (3.5-5.1) Chloride Level 105 mmol/L (98-107) Carbon Dioxide Level 27 mmol/L (21-32) Anion Gap 7 (6-14) Blood Urea Nitrogen 42 mg/dL (8-26) Creatinine 1.7 mg/dL (0.7-1.3) Estimated GFR (Cockcroft-Gault) 39.7 Glucose Level 125 mg/dL (70-99) Calcium Level 8.2 mg/dL (8.5-10.1) Test 03/28/20 21:07 03/29/20 04:00 03/29/20 05:06 03/29/20 05:34 Glucose (Fingerstick) 231 mg/dL (70-99) 59 mg/dL (70-99) 72 mg/dL (70-99) Sodium Level 140 mmol/L (136-145) Potassium Level 3.9 mmol/L (3.5-5.1) Chloride Level 107 mmol/L (98-107) Carbon Dioxide Level 25 mmol/L (21-32) Anion Gap 8 (6-14) Blood Urea Nitrogen 36 mg/dL (8-26) Creatinine 1.4 mg/dL (0.7-1.3) Estimated GFR (Cockcroft-Gault) 49.7 Glucose Level 81 mg/dL (70-99) Calcium Level 8.1 mg/dL (8.5-10.1) Test 03/29/20 07:34 Glucose (Fingerstick) 55 mg/dL (70-99) Laboratory Tests Test 03/28/20 08:12 03/28/20 17:10 03/28/20 21:07 03/29/20 04:00 Glucose (Fingerstick) 88 mg/dL (70-99) 196 mg/dL (70-99) 231 mg/dL (70-99) Sodium Level 140 mmol/L (136-145) Potassium Level 3.9 mmol/L (3.5-5.1) Chloride Level 107 mmol/L (98-107) Carbon Dioxide Level 25 mmol/L (21-32) Anion Gap 8 (6-14) Blood Urea Nitrogen 36 mg/dL (8-26) Creatinine 1.4 mg/dL (0.7-1.3) Estimated GFR (Cockcroft-Gault) 49.7 Glucose Level 81 mg/dL (70-99) Calcium Level 8.1 mg/dL (8.5-10.1) Test 03/29/20 05:06 03/29/20 05:34 03/29/20 07:34 Glucose (Fingerstick) 59 mg/dL (70-99) 72 mg/dL (70-99) 55 mg/dL (70-99) Medications Active Scripts Medications Dose Route/Sig Max Daily Dose Days Date Category Hydrochlorothiazide Capsule (Hydrochlorothiazide) 12.5 Mg Capsule 12.5 Mg PO DAILY 03/26/20 Reported Calcium 500 + D Tablet (Calcium Carbonate/Vitamin D3) 1 Each Tablet 1 Tab PO DAILY 30 03/26/20 Reported Multivitamins (Multivitamin) 1 Each Capsule 1 Cap PO DAILY 30 03/26/20 Reported Glimepiride 2 Mg Tablet 1 Tab PO DAILY 03/26/20 Reported Gemfibrozil 600 Mg Tablet 600 Mg PO BID 01/31/14 Reported Simvastatin 40 Mg Tablet 40 Mg PO DAILY 01/31/14 Reported Hydrochlorothiazide Capsule (Hydrochlorothiazide) 12.5 Mg Capsule 12.5 Mg PO DAILY 01/31/14 Reported Toprol Xl (Metoprolol Succinate) 50 Mg Tab.er.24h 50 Mg PO BID 01/31/14 Reported Lisinopril 20 Mg Tablet 20 Mg PO DAILY 01/31/14 Reported Metformin Hcl 1,000 Mg Tablet 1,000 Mg PO BIDWMEALS 01/31/14 Reported Aspir 81 (Aspirin) 81 Mg Tablet.dr 81 Mg PO DAILY 01/31/14 Reported Novolog Flexpen (Insulin Aspart) 100 Unit/1 Ml Insuln.pen 100 Unit SQ 01/31/14 Reported Impression . IMPRESSION: 1. Acute hypoxemic respiratory failure, multifactorial secondary to COVID-19 and morbid obesity along with possible chronic obstructive pulmonary disease. 2. Abnormal x-ray revealing bilateral pulmonary infiltrates compatible with COVID-19. 3. SARS-CoV-2 positivity a week ago. 4. Morbid obesity. 5. Type 2 diabetes. 6. Hypertension. 7. Fever related to SARS-CoV-2. 8. Chronic hypoxemic respiratory failure Plan . Needs oxygen supplementation at home Rx written by dr batista Follow-up with dr batista on Tuesday at 3 PM for results of the biopsy Rx for steroids prednisone additional [address] batista discussed w GURDEEP Morris MD Mar 29, 2020 07:54
[2020-03-29] MEDS: ASPIRIN ENTERIC COATED 81 MG TABLET.DR. PO SCH (09:35)
[2020-03-29] MEDS: METOPROLOL SUCC 24HR ER 50 MG TAB.ER.24H. PO SCH (09:35)
[2020-03-29] MEDS: LISINOPRIL 20 MG TABLET PO SCH (09:35)
[2020-03-29] MEDS: GLIMEPIRIDE 2 MG TABLET. PO SCH (09:35)
[2020-03-29] MEDS: DEXAMETHASONE 4 MG TABLET PO SCH (09:36)
[2020-03-29] MEDS: ENOXAPARIN 40 MG/0.4 ML SYRINGE. SQ SCH (09:36)
[2020-03-29 11:00] VITALS: BP 130/74
--- NOTE | 2020-03-29 12:36 | PDOC ---
DATE OF SERVICE: DATE: 03/29/20 TIME: 12:35 GENERAL General: vss and afebrile. remains on O2. pulse in 50's. chest with crackles. continue present therapy. VITAL SIGNS/I&O Vital Signs/I&O: Vital Signs Date Time Temp Pulse Resp B/P (MAP) Pulse Ox O2 Delivery O2 Flow Rate FiO2 03/29/20 11:00 97.4 50 20 130/74 (92) 99 Nasal Cannula 5.0 97.4 I & O 03/28/20 03/28/20 03/29/20 15:00 23:00 07:00 Intake Total 300 ml 300 ml 240 ml Output Total 550 ml Balance 300 ml 300 ml -310 ml ALLERGIES Allergies: Allergies Coded Allergies Type Severity Reaction Last Updated Verified No Known Drug Allergies 01/31/14 No LAB Lab: Laboratory Tests Test 03/28/20 17:10 03/28/20 21:07 03/29/20 04:00 03/29/20 05:06 Glucose (Fingerstick) 196 mg/dL (70-99) H 231 mg/dL (70-99) H 59 mg/dL (70-99) L Sodium Level 140 mmol/L (136-145) Potassium Level 3.9 mmol/L (3.5-5.1) Chloride Level 107 mmol/L (98-107) Carbon Dioxide Level 25 mmol/L (21-32) Anion Gap 8 (6-14) Blood Urea Nitrogen 36 mg/dL (8-26) H Creatinine 1.4 mg/dL (0.7-1.3) H Estimated GFR (Cockcroft-Gault) 49.7 Glucose Level 81 mg/dL (70-99) Calcium Level 8.1 mg/dL (8.5-10.1) L Test 03/29/20 05:34 03/29/20 07:34 03/29/20 10:43 Glucose (Fingerstick) 72 mg/dL (70-99) 55 mg/dL (70-99) L 83 mg/dL (70-99) Laboratory Tests 03/29/20 04:00 Justifications for Admission Other Justification MIKE JOHNS MD Mar 29, 2020 12:36
== END 2020-03-29 13:45 | disposition home or self-care (01) | DRG 177 ==
LOC: ER 18:31 → ED HOLD 19:34 → 6 SOUTH 22:56 → OBSVTOIN 03-26 12:01
PROVIDERS: ADMIT Family Medicine; ATTEND Family Medicine
DX: U07.1 COVID-19 (principal); J12.89 Other viral pneumonia; J96.21 Acute and chronic respiratory failure with hypoxia; N17.9 Acute kidney failure, unspecified; Z68.42 Body mass index [BMI] 45.0-49.9, adult; E11.22 Type 2 diabetes mellitus with diabetic chronic kidney disease; E11.65 Type 2 diabetes mellitus with hyperglycemia; E66.01 Morbid (severe) obesity due to excess calories; E86.0 Dehydration; I12.9 Hypertensive chronic kidney disease with stage 1 through stage 4 chronic kidney disease, or unspecified chronic kidney disease; N18.2 Chronic kidney disease, stage 2 (mild); Z87.891 Personal history of nicotine dependence; Z90.49 Acquired absence of other specified parts of digestive tract
CPT/HCPCS: 36415; 71045; 80048; 80053; 82962; 83605; 83880; 84484; 85025; 87040; 93005; 94618; 96361; 96374; 99285; G0378; G0379; J1100; J1650; J1815; J7030